=== PATIENT | female | born 1950 | race Caucasian/White ===

== ENCOUNTER 2018-03-30 16:42 | Emergency (ER) | payer OTHER ==
[~2018-03-30] VITALS: Ht 172.7 cm; Wt 104.3 kg
[~2018-03-30 16:42] MED LIST: LEVAQUIN750 MG PO; OSEL75CA PO; PROVENTIL HFA6.7 GM IH
== END 2018-03-30 22:58 | disposition home or self-care (01) ==
LOC: ER 16:42
DX: J11.1 Influenza due to unidentified influenza virus with other respiratory manifestations (principal); J40 Bronchitis, not specified as acute or chronic

== ENCOUNTER 2018-04-02 17:29 | Emergency (ER) | payer OTHER ==
[~2018-04-02] VITALS: Ht 170.2 cm; Wt 127.0 kg
[2018-04-02] MEDS ORDERED: AMOX-CLAV 875-1 EACH (18:09)
[2018-04-02] MEDS ORDERED: LEVALBUTER1.25 MG/3 (18:10)
[2018-04-02] MEDS ORDERED: TESSALON PERLE100 M1 (18:10)
[2018-04-02] MEDS ORDERED: ABATINEX680 MG (18:11)
== END 2018-04-03 02:33 | disposition home or self-care (01) ==
LOC: ER 17:29
DX: J40 Bronchitis, not specified as acute or chronic (principal); J11.1 Influenza due to unidentified influenza virus with other respiratory manifestations

== ENCOUNTER 2020-09-23 00:55 | Emergency (ER) | payer OTHER ==
[~2020-09-23] VITALS: Ht 170.2 cm; Wt 122.0 kg
[~2020-09-23 00:55] MED LIST changes: +ABATINEX680 MG; +AMOX-CLAV 875-1 EACH; +LEVALBUTER1.25 MG/3; +TESSALON PERLE100 M1
[2020-09-23] MEDS ORDERED: KETO10TA2 PO (02:44)
[2020-09-23] MEDS ORDERED: MEDROLPACK PO (03:07)
[2020-09-23] MEDS ORDERED: BENADRYL ALLERG25 MG PO (03:07)
== END 2020-09-23 03:00 | disposition home or self-care (01) ==
LOC: ER 00:55
DX: S80.02XA Contusion of left knee, initial encounter (principal); S60.022A Contusion of left index finger without damage to nail, initial encounter; W18.09XA Striking against other object with subsequent fall, initial encounter; Y93.89 Activity, other specified; Y92.512 Supermarket, store or market as the place of occurrence of the external cause; Y99.8 Other external cause status

== ENCOUNTER 2022-06-29 20:42 | Inpatient (IN) | payer OTHER ==
[~2022-06-29] VITALS: Ht 170.2 cm; Wt 127.9 kg
[~2022-06-29 20:42] MED LIST changes: +BENADRYL ALLERG25 MG PO; +KETO10TA2 PO; +MEDROLPACK PO
--- NOTE | 2022-06-29 21:20 | NUR ---
PTE VERBALIZA QUE [facility] CON BRONCHITIS. PTE SE OBSERVA CON SAT EN 93%. PTE SE OBSERVA A/O X4
--- NOTE | 2022-06-29 21:53 | NUR ---
PTE ALERTA,ESTABLE Y ORIENTADA.SE DUCA EDUCA SOBRE EL TRATAMIENTO QUE RECIBIRA EN EL HOSPITAL Y ESTA REFIERE ENTENDER
--- NOTE | 2022-06-30 05:42 | NUR ---
SE NOTIFICAN TERAPIAS RESP DE CONTINUIDAD A MS GARZON.
--- NOTE | 2022-06-30 06:37 | NUR ---
SE NOTIFICAN TERAPIAS A MS LOU
--- NOTE | 2022-06-30 08:04 | NUR ---
SE RECIBE PTE EN EL AREA DE OBSERVACION EN SANYA CON BARANDAS ELEVADA Y TIMBRE ACCESIBLE, NO PRESENTA DOLOR AL MOMENTO SE OBSERVA VENOPUNCION PATENTE Y ALEXI DE EDEMA PTE EN ESEPRA DE LA DR GILES.
[2022-07-01] MEDS ORDERED: VENTOLIN HFA18 GM (09:09)
[2022-07-01] MEDS ORDERED: SINGULAIR 10MG10 MG (09:09)
== END 2022-07-13 11:05 | disposition home or self-care (01) | DRG 178 ==
LOC: ER 20:42 → EMR PED 20:45 → ER 20:45 → MEDJ 06-30 11:28
PROVIDERS: ADMIT Internal Medicine; ATTEND Internal Medicine
PROC: 3E0F73Z Introduction of Anti-inflammatory into Respiratory Tract, Via Natural or Artificial Opening (ICD-10-PCS; principal; 2022-06-30)
PROC: 8E0ZXY6 Isolation (ICD-10-PCS; 2022-07-06)
DX: J15.0 Pneumonia due to Klebsiella pneumoniae (principal); J45.21 Mild intermittent asthma with (acute) exacerbation; Z16.12 Extended spectrum beta lactamase (ESBL) resistance; J20.9 Acute bronchitis, unspecified; J18.0 Bronchopneumonia, unspecified organism; E66.01 Morbid (severe) obesity due to excess calories; I10 Essential (primary) hypertension

== ENCOUNTER 2022-12-19 20:53 | Emergency (ER) | payer OTHER ==
[~2022-12-19] VITALS: Ht 171.4 cm; Wt 129.3 kg
[~2022-12-19 20:53] MED LIST changes: +SINGULAIR 10MG10 MG; +VENTOLIN HFA18 GM
[2022-12-19] MEDS ORDERED: LIPITOR20 MG (21:07)
[2022-12-19] MEDS ORDERED: HYDROCHLOROTH12.5 MG (21:07)
[2022-12-19] MEDS ORDERED: COZAAR100 MG (21:08)
== END 2022-12-19 22:04 | disposition home or self-care (01) ==
LOC: ER 20:53
DX: H60.93 Unspecified otitis externa, bilateral (principal)